=== PATIENT | female | born 1945 | race Caucasian/White ===

== ENCOUNTER 2023-06-12 11:06 | Outpatient (CLI) | payer MEDICARE, OTHER ==
[~2023-06-12 11:06] MED LIST: ASPI-1009 PO; CALC-988 PO; CHOL200026 PO; GLIP-126 PO; LISI-222 PO; LOVA40TA76 PO; METF-900 PO; MULT-1085 PO; OMEG1CAP54 PO; SITA25TA3 PO; SPIIN IH; SYN0.1T PO; TRAM50TA2 PO
[2023-06-12] MEDS ORDERED: iohexol 350MG/ML 100ml bottle IV ONE (11:21)
== END 2023-06-12 23:59 | disposition home or self-care (01) ==
LOC: RAD 11:06
PROVIDERS: ATTEND Internal Medicine Interventional Cardiology
DX: I65.23 Occlusion and stenosis of bilateral carotid arteries (principal); I70.213 Atherosclerosis of native arteries of extremities with intermittent claudication, bilateral legs; I35.0 Nonrheumatic aortic (valve) stenosis
CPT/HCPCS: 70498; J3490; Q9967

== ENCOUNTER 2023-06-13 08:32 | Outpatient (CLI) | payer MEDICARE, OTHER ==
[2023-06-13] MEDS ORDERED: iohexol 350MG/ML 100ml bottle IV ONE (08:47)
[2023-06-13] MEDS ORDERED: iohexol 350 MG/ML 50ML vial IV ONE (08:47)
== END 2023-06-13 23:59 | disposition home or self-care (01) ==
LOC: RAD 08:32
PROVIDERS: ATTEND Internal Medicine Interventional Cardiology
DX: I70.203 Unspecified atherosclerosis of native arteries of extremities, bilateral legs (principal); I35.0 Nonrheumatic aortic (valve) stenosis; I65.23 Occlusion and stenosis of bilateral carotid arteries; I70.213 Atherosclerosis of native arteries of extremities with intermittent claudication, bilateral legs; K57.30 Diverticulosis of large intestine without perforation or abscess without bleeding; I70.0 Atherosclerosis of aorta
CPT/HCPCS: 75635; J3490; Q9967